=== PATIENT | female | born 1945 ===

== ENCOUNTER → 2018-07-12 | Outpatient (CLI) | payer OTHER ==
[~2018-07-12] VITALS: Ht 152.4 cm; Wt 74.4 kg
== END | disposition home or self-care (01) ==
LOC: OFIC 805 08:55
DX: J31.0 Chronic rhinitis (principal); J34.2 Deviated nasal septum; S02.2XXS Fracture of nasal bones, sequela

== ENCOUNTER 2018-08-09 08:46 | Outpatient (CLI) | payer OTHER ==
[~2018-08-09] VITALS: Ht 152.4 cm; Wt 74.4 kg
== END 2018-08-09 09:00 | disposition home or self-care (01) ==
LOC: OFIC 805 08:46
DX: J31.0 Chronic rhinitis (principal); J34.2 Deviated nasal septum; S02.2XXS Fracture of nasal bones, sequela